=== PATIENT | male | born 1980 | race Two or more races ===

== ENCOUNTER 2020-07-29 20:11 | Emergency (ER) | payer OTHER ==
[~2020-07-29] VITALS: Ht 170.2 cm; Wt 90.7 kg
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
[2020-07-29 20:27] VITALS: BP 127/75
[2020-07-29] MEDS ORDERED: Acetaminophen 500mg (ES) tab ORAL ONE (20:30)
--- NOTE | 2020-07-29 21:08 | Diagnostic Imaging Report ---
EXAM: CT Head Without Intravenous Contrast CLINICAL HISTORY: H/A TECHNIQUE: Axial computed tomography images of the head/brain without intravenous contrast. CTDI is 53.4 mGy and DLP is 1036.5 mGy-cm. One or more of the following dose reduction techniques were used: automated exposure control, adjustment of the mA and/or kV according to patient size, use of iterative reconstruction technique. COMPARISON: No previous studies. FINDINGS: Brain: No abnormal extra-axial collection. No hemorrhage. Midline shift: No midline shift or mass-effect per Ventricles: The ventricular system is age appropriate. Bones/joints: Calvarium is within normal limits. No acute fracture. Soft tissues: Unremarkable. Sinuses: Visualized sinuses are unremarkable. Mastoid air cells: The mastoid air cells are well pneumatized to Other findings: Axial and coronal images were provided. IMPRESSION: 1. No acute intracranial pathology is detected. 2. If there is concern for etiology such as early acute lacunar infarcts, magnetic resonance imaging of the brain with diffusion-weighted sequences should be performed.
--- NOTE | 2020-07-29 21:10 | Diagnostic Imaging Report ---
EXAM: CT Cervical Spine Without Intravenous Contrast CLINICAL HISTORY: Headache. Neck pain. TECHNIQUE: Axial computed tomography images of the cervical spine without intravenous contrast. CTDI is 29.8 mGy and DLP is 727.2 mGy-cm. One or more of the following dose reduction techniques were used: automated exposure control, adjustment of the mA and/or kV according to patient size, use of iterative reconstruction technique. COMPARISON: No previous study. FINDINGS: Vertebrae: Alignment of the cervical spine is within normal limits. Cervical and visualized thoracic vertebral bodies are maintained in height. There is a normal relationship of C1 and C2. Gentle levoscoliosis of the cervical spine. Transaxial images of the cervical spine reveal no acute injury to the cervical spine. Discs/spinal canal/neural foramina: No acute findings. No spinal canal stenosis. Soft tissues: Paraspinal soft tissues are unremarkable. Lung apices: Lung apices are unremarkable. Other findings: Spinous processes are unremarkable. IMPRESSION: No acute injury to the cervical spine is detected.
[2020-07-29] MEDS ORDERED: Methocarbamol 750mg tab ORAL ONE ×2 (21:26→21:30)
[2020-07-29] MEDS ORDERED: LIDODERM700 M1 TOPIC (21:28)
[2020-07-29] MEDS ORDERED: IBUPROFEN600 M1 ORAL (21:28)
[2020-07-29] MEDS ORDERED: ROBAXIN-750750 MG PO (21:28)
[2020-07-29 21:33] VITALS: BP 132/85
--- NOTE | 2020-07-29 21:41 | NUR ---
ER DISCHARGE NOTE: Patient is cleared to be discharged per ERMD, pt is aox4, on room air, with stable vital signs. pt was given dc and prescription instructions, pt was able to verbalize understanding, pt id band and iv site removed without complications. pt is able to ambulate with steady gait. pt took all belongings. Pt left in a private car. Addendum: 07/29/20 at 2141 by RENETTA correction pt did not have an IV in ED today.
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
== END 2020-07-29 21:38 | disposition home or self-care (01) ==
LOC: EMR 20:29
DX: M54.2 Cervicalgia (principal); R51.9 Headache, unspecified; V43.52XA Car driver injured in collision with other type car in traffic accident, initial encounter; Y92.411 Interstate highway as the place of occurrence of the external cause; Z88.0 Allergy status to penicillin
CPT/HCPCS: 70450; 72125; 99284